=== PATIENT | female | born 1985 | race African-American/Black ===

== ENCOUNTER 2017-04-03 18:15 | Emergency (ER) | payer MEDICARE, MEDICAID ==
[~2017-04-03] VITALS: Ht 165.1 cm; Wt 43.5 kg
[2017-04-03 18:25] VITALS: BP 117/80
[2017-04-03] MEDS ORDERED: GABAPENTIN300 MG ORAL (18:30)
[2017-04-03] MEDS ORDERED: IRON325 M1 PO (18:30)
[2017-04-03] MEDS ORDERED: NORCO 10-325 T1 EACH ORAL (18:30)
[2017-04-03] MEDS ORDERED: FOLIC ACID1 MG ORAL (18:30)
[2017-04-03] MEDS ORDERED: NORCO 5-325 TA1 EACH ORAL (18:50)
[2017-04-03 18:58] VITALS: BP 117/80
[2017-04-03] MEDS ORDERED: Norco 5mg/325mg tab ORAL ONE (19:00)
--- NOTE | 2017-04-03 19:03 | Emergency Room Report ---
History of Present Illness General Chief Complaint: Pain Source: Patient Present Illness HPI 31YOF walk-in with "sickle cell pain" to left knee and lower back Endorses chronic pain to these areas No acute worsening of pain. Denies knee swelling, fall, fever/chills Was just admitted to [facility] for 3 days earlier this month. States she had blood transfusion Her DC paperwork shows Rx provided for gabapentin, baclofen and folic acid and norco. She states she got all the Rx except for [place] States not on hydroxyurea States difficulty findinging PMD d/t insurance Denies chest pain, SOB, fever/chills, abd pain States when she had transfusion she had dizziness, near-syncope - not feeling any of that now Allergies: Coded Allergies: MORPHINE (Verified Allergy, Unknown, 04/03/17) PENICILLINS (Verified Allergy, Unknown, 04/03/17) PREDNISONE (Verified Allergy, Unknown, 04/03/17) TRAMADOL (Verified Allergy, Unknown, 04/03/17) Patient History Past Medical History: other - Sickle cell disease Past Surgical History: none Pertinent Family History: none Social History: Denies: smoking, alcohol use, drug use Now: No Immunizations: UTD Reviewed Nursing Documentation: PMH: Agreed, PSxH: Agreed Nursing Documentation-PMH Past Medical History: No Stated History Hx Asthma: Yes Review of Systems All Other Systems: negative except mentioned in HPI Physical Exam Vital Signs Date Time Temp Pulse Resp B/P (MAP) Pulse Ox O2 Delivery O2 Flow Rate FiO2 04/03/17 18:17 98.2 106 19 117/80 97 Room Air Sp02 EP Interpretation: reviewed, normal General Appearance: normal inspection, well appearing, no apparent distress, alert, GCS 15, non-toxic Head: normocephalic, atraumatic Eyes: bilateral eye PERRL, bilateral eye EOMI ENT: normal ENT inspection, hearing grossly normal, normal voice Neck: normal inspection, full range of motion, supple, no bony tend Respiratory: normal inspection, lungs clear, normal breath sounds, no respiratory distress, no retraction, no wheezing Cardiovascular #1: regular rate, rhythm, no edema Gastrointestinal: normal inspection, normal bowel sounds, non tender, soft, no guarding, no hernia Genitourinary: no CVA tenderness Musculoskeletal: normal inspection, back normal, normal range of motion, Donavan' s Sign negative Neurologic: normal inspection, alert, oriented x3, responsive, fitting room supervisor III-XII nml as tested, speech normal Psychiatric: normal inspection, judgement/insight normal, mood/affect normal Skin: normal inspection, normal color, no rash Lymphatic: normal inspection Medical Decision Making Diagnostic Impression: Primary Impression: Chronic pain Qualified Codes: G89.29 - Other chronic pain ER Course Chronic knee, back pain ?sickle cell disease Not on hydroxyurea currently VSS. Afebrile. No chest pain, SOB c/w acute chest syndrome or PNA No signs/symptoms of anemia requiring transfusion I see little utility in repeating blood tests as she was recently DCed from [facility] Allergies to Tylenol/NSAIDS AND morphine but states ok to take [place] Initial dose given in ED and short course Rx DC home Last Vital Signs Date Time Temp Pulse Resp B/P (MAP) Pulse Ox O2 Delivery O2 Flow Rate FiO2 04/03/17 18:17 98.2 106 19 117/80 97 Room Air Status: improved Disposition: HOME, SELF-CARE Condition: Improved Scripts Hydrocodone Bit/Acetaminophen 5-325* (NORCO 5-325*) 1 Each Tablet 1 TAB ORAL Q12H Y for For Pain for 7 Days, #14 TAB 0 Refills Prov: ROSEY WESTON M.D. 04/03/17 Patient Instructions: Sickle Cell Anemia, Adult, [id number] Additional Instructions: - Take your medications as prescribed from [facility] - Only use [place] for severe pain - Follow up with primary care doctor ROSEY WESTON M.D. Apr 03, 2017 19:03
--- NOTE | 2017-04-03 19:03 | Emergency Room Report ---
History of Present Illness General Chief Complaint: Pain Source: Patient Present Illness HPI 31YOF walk-in with "sickle cell pain" to left knee and lower back Endorses chronic pain to these areas No acute worsening of pain. Denies knee swelling, fall, fever/chills Was just admitted to [facility] for 3 days earlier this month. States she had blood transfusion Her DC paperwork shows Rx provided for gabapentin, baclofen and folic acid and norco. She states she got all the Rx except for [place] States not on hydroxyurea States difficulty findinging PMD d/t insurance Denies chest pain, SOB, fever/chills, abd pain States when she had transfusion she had dizziness, near-syncope - not feeling any of that now Allergies: Coded Allergies: MORPHINE (Verified Allergy, Unknown, 04/03/17) PENICILLINS (Verified Allergy, Unknown, 04/03/17) PREDNISONE (Verified Allergy, Unknown, 04/03/17) TRAMADOL (Verified Allergy, Unknown, 04/03/17) Patient History Past Medical History: other - Sickle cell disease Past Surgical History: none Pertinent Family History: none Social History: Denies: smoking, alcohol use, drug use Now: No Immunizations: UTD Reviewed Nursing Documentation: PMH: Agreed, PSxH: Agreed Nursing Documentation-PMH Past Medical History: No Stated History Hx Asthma: Yes Review of Systems All Other Systems: negative except mentioned in HPI Physical Exam Vital Signs Date Time Temp Pulse Resp B/P (MAP) Pulse Ox O2 Delivery O2 Flow Rate FiO2 04/03/17 18:17 98.2 106 19 117/80 97 Room Air Sp02 EP Interpretation: reviewed, normal General Appearance: normal inspection, well appearing, no apparent distress, alert, GCS 15, non-toxic Head: normocephalic, atraumatic Eyes: bilateral eye PERRL, bilateral eye EOMI ENT: normal ENT inspection, hearing grossly normal, normal voice Neck: normal inspection, full range of motion, supple, no bony tend Respiratory: normal inspection, lungs clear, normal breath sounds, no respiratory distress, no retraction, no wheezing Cardiovascular #1: regular rate, rhythm, no edema Gastrointestinal: normal inspection, normal bowel sounds, non tender, soft, no guarding, no hernia Genitourinary: no CVA tenderness Musculoskeletal: normal inspection, back normal, normal range of motion, Donavan' s Sign negative Neurologic: normal inspection, alert, oriented x3, responsive, endless bed drum sander III-XII nml as tested, speech normal Psychiatric: normal inspection, judgement/insight normal, mood/affect normal Skin: normal inspection, normal color, no rash Lymphatic: normal inspection Medical Decision Making Diagnostic Impression: Primary Impression: Chronic pain Qualified Codes: G89.29 - Other chronic pain ER Course Chronic knee, back pain ?sickle cell disease Not on hydroxyurea currently VSS. Afebrile. No chest pain, SOB c/w acute chest syndrome or PNA No signs/symptoms of anemia requiring transfusion I see little utility in repeating blood tests as she was recently DCed from [facility] Allergies to Tylenol/NSAIDS AND morphine but states ok to take [place] Initial dose given in ED and short course Rx DC home Last Vital Signs Date Time Temp Pulse Resp B/P (MAP) Pulse Ox O2 Delivery O2 Flow Rate FiO2 04/03/17 18:17 98.2 106 19 117/80 97 Room Air Status: improved Disposition: HOME, SELF-CARE Condition: Improved Scripts Hydrocodone Bit/Acetaminophen 5-325* (NORCO 5-325*) 1 Each Tablet 1 TAB ORAL Q12H Y for For Pain for 7 Days, #14 TAB 0 Refills Prov: ROSEY WESTON M.D. 04/03/17 Patient Instructions: Sickle Cell Anemia, Adult, [id number] Additional Instructions: - Take your medications as prescribed from [facility] - Only use [place] for severe pain - Follow up with primary care doctor ROSEY WESTON M.D. Apr 03, 2017 19:03
--- NOTE | 2017-04-03 19:03 | Emergency Room Report ---
History of Present Illness General Chief Complaint: Pain Source: Patient Present Illness HPI 31YOF walk-in with "sickle cell pain" to left knee and lower back Endorses chronic pain to these areas No acute worsening of pain. Denies knee swelling, fall, fever/chills Was just admitted to [facility] for 3 days earlier this month. States she had blood transfusion Her DC paperwork shows Rx provided for gabapentin, baclofen and folic acid and norco. She states she got all the Rx except for [place] States not on hydroxyurea States difficulty findinging PMD d/t insurance Denies chest pain, SOB, fever/chills, abd pain States when she had transfusion she had dizziness, near-syncope - not feeling any of that now Allergies: Coded Allergies: MORPHINE (Verified Allergy, Unknown, 04/03/17) PENICILLINS (Verified Allergy, Unknown, 04/03/17) PREDNISONE (Verified Allergy, Unknown, 04/03/17) TRAMADOL (Verified Allergy, Unknown, 04/03/17) Patient History Past Medical History: other - Sickle cell disease Past Surgical History: none Pertinent Family History: none Social History: Denies: smoking, alcohol use, drug use Now: No Immunizations: UTD Reviewed Nursing Documentation: PMH: Agreed, PSxH: Agreed Nursing Documentation-PMH Past Medical History: No Stated History Hx Asthma: Yes Review of Systems All Other Systems: negative except mentioned in HPI Physical Exam Vital Signs Date Time Temp Pulse Resp B/P (MAP) Pulse Ox O2 Delivery O2 Flow Rate FiO2 04/03/17 18:17 98.2 106 19 117/80 97 Room Air Sp02 EP Interpretation: reviewed, normal General Appearance: normal inspection, well appearing, no apparent distress, alert, GCS 15, non-toxic Head: normocephalic, atraumatic Eyes: bilateral eye PERRL, bilateral eye EOMI ENT: normal ENT inspection, hearing grossly normal, normal voice Neck: normal inspection, full range of motion, supple, no bony tend Respiratory: normal inspection, lungs clear, normal breath sounds, no respiratory distress, no retraction, no wheezing Cardiovascular #1: regular rate, rhythm, no edema Gastrointestinal: normal inspection, normal bowel sounds, non tender, soft, no guarding, no hernia Genitourinary: no CVA tenderness Musculoskeletal: normal inspection, back normal, normal range of motion, Donavan' s Sign negative Neurologic: normal inspection, alert, oriented x3, responsive, tint layer III-XII nml as tested, speech normal Psychiatric: normal inspection, judgement/insight normal, mood/affect normal Skin: normal inspection, normal color, no rash Lymphatic: normal inspection Medical Decision Making Diagnostic Impression: Primary Impression: Chronic pain Qualified Codes: G89.29 - Other chronic pain ER Course Chronic knee, back pain ?sickle cell disease Not on hydroxyurea currently VSS. Afebrile. No chest pain, SOB c/w acute chest syndrome or PNA No signs/symptoms of anemia requiring transfusion I see little utility in repeating blood tests as she was recently DCed from [facility] Allergies to Tylenol/NSAIDS AND morphine but states ok to take [place] Initial dose given in ED and short course Rx DC home Last Vital Signs Date Time Temp Pulse Resp B/P (MAP) Pulse Ox O2 Delivery O2 Flow Rate FiO2 04/03/17 18:17 98.2 106 19 117/80 97 Room Air Status: improved Disposition: HOME, SELF-CARE Condition: Improved Scripts Hydrocodone Bit/Acetaminophen 5-325* (NORCO 5-325*) 1 Each Tablet 1 TAB ORAL Q12H Y for For Pain for 7 Days, #14 TAB 0 Refills Prov: ROSEY WESTON M.D. 04/03/17 Patient Instructions: Sickle Cell Anemia, Adult, [id number] Additional Instructions: - Take your medications as prescribed from [facility] - Only use [place] for severe pain - Follow up with primary care doctor ROSEY WESTON M.D. Apr 03, 2017 19:03
== END 2017-04-03 18:59 | disposition home or self-care (01) ==
LOC: EMR 18:49
DX: G89.29 Other chronic pain (principal); M54.5 Low back pain; J45.909 Unspecified asthma, uncomplicated; Z88.0 Allergy status to penicillin; Z88.6 Allergy status to analgesic agent
CPT/HCPCS: 99283